=== PATIENT | female | born 1960 | race Caucasian/White ===

== ENCOUNTER → 2016-12-17 | Outpatient (CLI) | payer OTHER | LOC: BRMIMAGING 07:40 | PROVIDERS: ATTEND Physician Assistant Medical | DX: Z12.31 Encounter for screening mammogram for malignant neoplasm of breast (principal) | CPT/HCPCS: G0202 ==

== ENCOUNTER → 2016-12-28 | Outpatient (CLI) | payer OTHER | LOC: BRMIMAGING 09:12 | PROVIDERS: ATTEND Physician Assistant Medical | DX: Z12.39 Encounter for other screening for malignant neoplasm of breast (principal); N63 Unspecified lump in breast | CPT/HCPCS: 76641-PO; G0206 ==